=== PATIENT | male | born 1955 ===

== ENCOUNTER 2024-09-14 14:18 | Outpatient (REF) | payer OTHER, MEDICARE, SELFPAY ==
[2024-09-14 15:29] LABS: HBc Num1 0.09 S/CO (0.00-0.79); HBsAGNum1 0.32 S/CO (0.00-0.99); HIV AB/AG Nonreactive (Nonreactive); HIV Num 1 0.05 S/CO (0.00-0.99); Hepatitis B Core Antibody Nonreactive (Nonreactive); Hepatitis B Surface Antigen Negative (Negative); ~Hepatitis B Surface Antibody REACTIVE (Nonreactive)
[2024-09-14 15:52] LABS: Hepatitis C Ab Exposure Source NonReactive (Nonreactive)
--- OUTSIDE RECORDS SUMMARY | 2024-09-14 16:21 | XMS_ITS | Clinical Summary ---
Author Organization [place] [address] [address] [facility] Building Address [address] [place], [place] [address] Phone Care Team Providers Care Commercial Maintenance Technician Name Role Phone Inez Durbin NP Primary Care Provider [phone] Allergies No known active allergies Medications tadalafiL (CIALIS) 20 mg tablet Take 1 Tablet by mouth daily as needed for Erectile Dysfunction 3 Active valsartan-hydro CHLOROthiazide (DIOVAN-HCT) 160-12.5 mg per tablet Take 1 tablet by mouth 1 (one) time each day. 4 Active amLODIPine (NORVASC) 2.5 mg tablet TAKE ONE TABLET BY MOUTH EVERY DAY 90 tablet 3 4 Active atorvastatin (LIPITOR) 40 mg tablet TAKE ONE TABLET BY MOUTH EVERY DAY 90 tablet 3 4 Active atenoloL (TENORMIN) 50 mg tablet TAKE ONE TABLET BY MOUTH EVERY DAY 90 tablet 3 5 Active Active Problems Problem Noted Date Diagnosed Date Essential hypertension 03/20/2024 Overview (03/20/2024): Last Assessment & Plan: The patient has a history of hypertension. Blood pressure today in our office was noted to be 138/82 mmHg. However, patient states that his blood pressure at home is very well-controlled. Specifically, he states that his systolic blood pressure at home is usually in the 110s/120s. Therefore, at this time, I recommended for the patient to continue his current medication regimen. However, I instructed the patient to create a blood pressure log at home for 1 week and to contact our office in 1 week to let us know about his blood pressure values at home. That way, we determine if the need to make any adjustments in his antihypertensive medication regimen. Hypercholesterolemia 03/20/2024 Overview (03/20/2024): Last Assessment & Plan: The patient has a history of hyperlipidemia. He is currently on atorvastatin 40 mg orally daily. Last lipid panel showed an adequate cholesterol control. Will continue his current medication regimen. Aneurysm of ascending aorta 08/15/2021 Overview (03/20/2024): Last Assessment & Plan: The patient has a history of a mild ascending aorta dilation. Ascending aorta measured 4.1 cm on his echocardiogram done in August 2021. Will order a new echocardiogram to reevaluate his ascending aorta dilation. SOB (shortness of breath) 07/28/2020 Overview (03/20/2024): Last Assessment & Plan: The patient has been experiencing shortness of breath with exertion. He does have multiple risk factors for CAD, including: Hyperlipidemia and hypertension. His shortness of breath may be his anginal equivalent. As such, will order a stress test to evaluate for any underlying exercise-induced cardiac ischemia as a cause of his symptoms. We will also order an echocardiogram to evaluate for any underlying structural heart disease. Right inguinal hernia 02/23/2020 Encounters Date Type Department Care Team Description 08/31/2024 9:30 AM EDT Consult [facility] - [facility] [address] [place] [address] Inez Durbin NP Preoperative cardiovascular examination (Primary Dx); Essential hypertension; Hypercholesterolemia; Age-related cataract of both eyes, unspecified age-related cataract type 06/29/2024 9:00 AM EST Ancillary Procedure [facility] [address] [place] [address] Aneurysm of ascending aorta without rupture (CMS/HCC) from Last 3 Months Immunizations Name Administration Dates Next Due Influenza, Unspecified 03/19/2023,03/17/2022 Pfizer SARS-CoV-2 COVID-19, mRNA, LNP-S, preservative free 03/19/2023,03/14/2022,06/03/2021 Pneumococcal conjugate 20 va lent (Prevnar 20, PCV 20) 2mo and older 03/19/2023 Pneumococcal polysaccharide 23 valent (Pneumovax 23) 2yo and older 03/19/2023 RSV, bivalent, protein subun it RSVpreF, 0.5mL, Preservative Free (Arexvy) 60yo and older 04/23/2023 Tdap Tetanus diptheria acell ular pertussis (Boostrix; Adacel) 7yo and older 07/27/2022 Zoster recombinant (Shingrix ) 19yo and older 11/15/2021,09/15/2021 Surgical History Surgery Date Site/Laterality Comments ANKLE FRACTURE SURGERY Right PROCEDURE: TN OPEN TREATMENT MEDIAL MALLEOLUS FRACTURE OTHER SURGICAL HISTORY Left PROCEDURE: TN RPR 1ST INGUN HRNA AGE 5 YRS/> REDUCIBLE HERNIA REPAIR 02/25/2018 Right PROCEDURE: LAPAROSCOPY, INGUINAL HERNIA REPAIR; COMMENT: Dr. Vail LIPOMA RESECTION 03/17/2014 PROCEDURE: SKIN TISSUE EXCISION(LIPOMA) Medical History Medical History Date Comments Unspecified essential hypertension DX:Unspecified essential hypertension Hyperlipidemia DX:Hyperlipidemi a Right inguinal hernia DX:Right i nguinal hernia; COMMENT: 11/16/2017 Anxiety disorder DX:Anxiety diso rder Cervicalgia DX:Cervicalgia SOB (shortness of breath) DX:SOB (shortness of breath) Erectile dysfunction DX:Erectile dysfunction Aortic ectasia DX:Aortic ectasi a (HCC) Family History Medical History Relation Name Comments Hypertension Brother Lung cancer Father Other: Other Mother Hypertension Sister Blindness Neg Hx Cataracts Neg Hx Glaucoma Neg Hx Macular degeneration Neg Hx Strabismus Neg Hx Relation Name Status Comments Brother Father Mother Alive Sister Social History Tobacco Use Types Packs/Day Years Used Date Smoking Tobacco: Never Smokeless Tobacco: Never Alcohol Use Standard Drinks/Week Comments Yes 2 (1 standard drink = 0.6 oz pur e alcohol) Sex and Gender Information Value Date Recorded Sex Assigned at Not on file Legal Sex Male 12:43 PM EST Gender Identity Not on file Sexual Orientation Not on file Obstetrics History Last Filed Vital Signs Vital Sign Reading Time Taken Comments Blood Pressure 134/82 08/31/2024 9:28 AM EDT A Pulse 63 08/31/2024 9:28 AM EDT Temperature - - Respiratory Rate - - Oxygen Saturation - - Inhaled Oxygen Concentration - - Weight 99.3 kg (219 lb) 08/31/2024 9:28 AM EDT Height 180.3 cm (5' 11 ) 08/31/2024 9:28 AM EDT Body Mass Index 30.54 08/31/2024 9:28 AM EDT Plan of Treatment Upcoming Encounters Date Type Department Care Team (Late st Contact Info) Description 10/28/2024 3:00 PM EDT [facility] [address] [place] [address] Ienz Durbin NP [address] [place] [address] Health Maintenance Due Date Last Done Comments Social Influencers of Health Screening 05/15/2022 Colorectal Cancer Screening: Colonoscopy 12/31/2023 12/30/2018 Depression Screening 10/27/2024 10/28/2023 Falls Risk Assessment 10/27/2024 10/28/2023 Hypertension/CHF/CAD Annual BMP Blood Test 04/29/2025 04/29/2024, 10/28/2023, 10/28/2023 Cholesterol Screening (Lipid Panel) 04/29/2029 04/29/2024, 10/28/2023, 10/28/2023 DTaP,Tdap,and Td Vaccines (2 - Td or Tdap) 07/27/2032 07/27/2022 Zoster Vaccines Completed 11/15/2021, 09/16, 09/15/2021, Additional history exists Hepatitis C Screening Completed 10/24/2022 Pneumococcal Vaccine: 50+ Years Completed 03/19/2023, 03/19/2023 RSV Immunization Patients 60+ Years Old Completed 04/23/2023 COVID-19 Vaccine Completed 03/18/2024, 08/2022, 03/14/2022, Additional history exists Influenza Vaccine Completed 03/18/2024, , 03/17/2022 HIB Vaccines Aged Out No longer eligi ble based on patient's age to complete this topic HPV Vaccines Aged Out No longer eligi ble based on patient's age to complete this topic Hepatitis A Vaccines Aged Out No long er eligible based on patient's age to complete this topic Hepatitis B Vaccines Aged Out No long er eligible based on patient's age to complete this topic IPV Vaccines Aged Out No longer eligi ble based on patient's age to complete this topic MMR Vaccines Aged Out No longer eligi ble based on patient's age to complete this topic Meningococcal ACWY Vaccine Aged Out N o longer eligible based on patient's age to complete this topic Meningococcal B Vacine Aged Out No lo nger eligible based on patient's age to complete this topic RSV Immunization Patients Under 20 months Aged Out No longer eligible based on patient's age to complete this topic Varicella Vaccines Aged Out No longer eligible based on patient's age to complete this topic Procedures Procedure Name Priority Date/Time Associated Diagnosis Comments TRANSTHORACIC ECHOCARDIOGRAM (TTE) COMPLETE Routine 06/29/2024 9:22 AM EST Aneurysm of ascending aorta without rupture (CMS/HCC) BASIC METABOLIC PANEL Routine 04/29/2024 9:22 AM EST Essential hypertension LIPID PANEL WITH REFLEX TO DIRECT LDL Routine 04/29/2024 9:22 AM EST Mixed hyperlipidemia DEPRESSION SCREENING Routine 10/28/2023 FALLS RISK ASSESSMENT Routine 10/28/2023 HEPATITIS C SCREENING Routine 10/24/2022 COLONOSCOPY Routine 12/30/2018 from Last 3 Months or Most Recently Relevant to Health Maintenance Results * TRANSTHORACIC ECHOCARDIOGRAM (TTE) COMPLETE (06/29/2024 9:22 AM EST) Left Atrium Minor Westhoff 5.7 cm CV PACS Left Atrium Major Westhoff 6.1 cm CV PACS LA Area Sys (A2C) 24 cm2 CV PACS LA Area Sys (A4C) 20 cm2 CV PACS LA Volume (BP) 67 mL CV PACS RA Area 15.1 cm2 CV PACS RA 2D Volume 36 mL CV PACS AV Mean Gradient 2 mmHg CV PACS Ao VTI 27.4 cm CV PACS AV Peak Rob 1.1 m/s CV PACS AV Peak Gradient 4 mmHg CV PACS AV Area Continuity Equation 2.9 cm2 CV PACS AV Area Peak Velocity 2.8 cm2 CV PACS Aortic Sinus Valsalva 3.7 cm CV PACS Ascending Aorta 4.1 cm CV PACS IVC Proximal 1.4 cm CV PACS IVSD 1.0 0.6 - 1.0 cm CV PACS LVIDD 4.9 4.2 - 5.8 cm CV PACS LVIDS 3.5 2.5 - 4.0 cm CV PACS LVOT Diameter 2.0 cm CV PACS LVOT Mean Rob 0.7 m/s CV PACS LVOT Mean Grad 2 mmHg CV PACS LVOT Peak VTI 25.5 cm CV PACS LVOT Peak Rob 1.0 m/s CV PACS LVOT Peak Gradient 4 mmHg CV PACS LVPWD 1.0 0.6 - 1.0 cm CV PACS MV E' Tissue Velocity Lateral 11 cm/s CV PACS MV E' Tissue Velocity Septal 7 cm/s CV PACS LVOT Area 3.1 cm2 CV PACS LVOT Stroke Volume 80 mL CV PACS MV Deceleration Page 3.1 m/s2 CV PACS E Wave Deceleration Time 207 119 - 242 ms CV PACS MV PHT 61 ms CV PACS MV Peak A Rob 0.56 m/s CV PACS MV Peak E Rob 0.65 m/s CV PACS MV Area PHT 3.6 cm2 CV PACS TN End Max Velocity 0.9 m/s CV PACS PA End Diastolic Pressure 3 mmHg CV PACS PV Acceleration Time 85 ms CV PACS PV Peak Velocity 0.9 m/s CV PACS PV Peak Gradient 3 mmHg CV PACS RV Diastolic Basal Dimension 3.3 2.5 - 4.1 cm CV PACS TAPSE 25 mm CV PACS TR Peak Velocity 2.16 m/s CV PACS TR Peak Gradient 19 mmHg CV PACS E/E' Ratio Septal 9 CV PACS E/E' Ratio Averaged 8 CV PACS LVOT Stroke Index 37 mL/m2 CV PACS Relative Wall Thickness ratio 0.41 CV PACS LVOT:AV VTI Index 0.93 CV PACS FS 29 % CV PACS LV Mass 2D 176 g CV PACS Ascending Aorta Index 1.87 cm/m2 CV PACS LVOT flow 220 mL/s CV PACS RA 2D Volume Index 16 mL/m2 CV PACS REJI Index (VTI) 1.33 cm2/m2 CV PACS REJI Index (Pk Rob) 1.28 cm2/m2 CV PACS LVIDD Index 2.24 cm/m2 CV PACS LVIDS Index 1.60 cm/m2 CV PACS AV Velocity Ratio 0.91 CV PACS E/A Ratio 1.2 CV PACS E/E' Ratio Lateral 6 CV PACS LA Volume Index (BP) 31 mL/m2 CV PACS LV Mass Index 2D 80 g/m2 CV PACS BSA 2.23 m2 CV PACS Right Ventricular Peak Systolic Pressure 22 mmHg CV PACS Est. RA Pressure 3 mmHg CV PACS Anatomical Region Laterality Modality Ultrasound Narrative 07/29/2024 8:22 AM EST ?Left ventricle cavity size is normal. Left ventricular systolic function is in the normal range with an ejection fraction of 55-60%. ?No regional LV wall motion abnormalities noted. ?Right??Ventricle: Systolic function is normal. ?Mitral??Valve: There is mild regurgitation. ?Aorta: The ascending aorta is dilated (4.1 cm). Left Ventricle Left ventricle cavity size is normal. Wall thickness is normal. Systolic function is normal with an ejection fraction of 55-60%. There are no regional LV wall motion abnormalities. There is no diastolic dysfunction. Right Ventricle Right ventricle cavity appears normal. Systolic function is normal. Left Atrium Left atrium cavity size is normal. Right Atrium Right atrium cavity is normal. Mitral Valve The leaflets are mildly thickened. There is annular calcification. There is mild regurgitation. There is no evidence of mitral valve stenosis. Tricuspid Valve Tricuspid valve structure is normal. There is trace regurgitation. There is no evidence of tricuspid valve stenosis. Aortic Valve The aortic valve is trileaflet. The leaflets are mildly thickened. There is no regurgitation or stenosis. Pulmonic Valve Visualized portions of the pulmonic valve appear normal. There is trace pulmonic valve regurgitation. There is no evidence of pulmonic valve stenosis. Ascending Aorta The ascending aorta is dilated (4.1 cm). Pericardium Pericardium appears normal. There is no pericardial effusion. Study Details Overall the study quality was adequate. us Jaylyn Rutledge PERSONAL SECURITY SPECIALIST CV ECHO PROCEDURES Final Re sult * (ABNORMAL) Lipid panel with reflex to direct LDL (04/29/2024 9:22 AM EST) Cholesterol 146 0 - 200 mg/dL LAB CHEMISTRY METHOD 04/29/2024 12:58 PM EST [facility] Triglycerides 170(H) 0 - 150 mg/dL LAB CHEMISTRY METHOD 04/29/2024 12:58 PM EST [facility] HDL 46 >=40 mg/dL LAB CHEMISTRY METHOD 04/29/2024 12:58 PM [facility] LDL Calculated 66 0 - 100 mg/dL LAB CHEMISTRY METHOD 04/29/2024 12:58 PM [facility] VLDL Cholesterol Gutierrez 34 mg/dL LAB CHEMISTRY METHOD 04/29/2024 12:58 PM EST [facility] Non HDL Chol. (LDL+VLDL) 100 <145 mg/dL LAB CHEMISTRY METHOD 04/29/2024 12:58 PM EST [facility] Chol/HDL Ratio 3.2 0.0 - 4.4 LAB CHEMISTRY METHOD 04/29/2024 12:58 PM [facility] Blood Venous blood specimen / Unknown Venipuncture / Unknown 04/29/2024 9:22 AM EST 04/29/2024 9:22 AM EST Inez Durbin PERSONAL SECURITY SPECIALIST LAB BLOOD ORDERABLES Final Resu lt [facility] [address] [place] [address], * (ABNORMAL) Basic metabolic panel (04/29/2024 9:22 AM EST) Sodium 138 133 - 145 mmol/L LAB CHEMISTRY METHOD 04/29/2024 12:56 PM [facility] Potassium 4.1 3.5 - 5.5 mmol/L LAB CHEMISTRY METHOD 04/29/2024 12:56 PM [facility] Chloride 101 96 - 110 mmol/L LAB CHEMISTRY METHOD 04/29/2024 12:56 PM [facility] CO2 30 21 - 32 mmol/L LAB CHEMISTRY METHOD 04/29/2024 12:56 PM [facility] Anion Gap 7 3 - 11 LAB CHEMISTRY METHOD 04/29/2024 12:56 PM [facility] Glucose 98 70 - 100 mg/dL LAB CHEMISTRY METHOD 04/29/2024 12:56 PM [facility] BUN 20 5 - 25 mg/dL LAB CHEMISTRY METHOD 04/29/2024 12:56 PM [facility] Creatinine 1.37(H) 0.70 - 1.30 mg/dL LAB CHEMISTRY METHOD 04/29/2024 12:56 PM [facility] eGFR 57(L) >=60 mL/min/1. 73m2 LAB CHEMISTRY METHOD 04/29/2024 12:56 PM [facility] Comment:Calculation based on the??Chronic Kidney Disease Epidemiology Collaboration (CKD-EPI) equation refit??without adjustment for race. BUN/Creatinine Ratio 14.6 LAB CHEMISTRY METHOD 04/29/2024 12:56 PM [facility] Calcium 9.8 8.5 - 10.5 mg/dL LAB CHEMISTRY METHOD 04/29/2024 12:56 PM [facility] Blood Venous blood specimen / Unknown Venipuncture / Unknown 04/29/2024 9:22 AM EST 04/29/2024 9:22 AM EST us Inez Durbin NP LAB BLOOD ORDERABLES Final Resu lt [facility] [address] [place], [place] [address] [phone] * Falls Risk Assessment (10/28/2023) Pathologist [facility] Falls Risk Assessment Abstracted Historical Provider HEALTH MAINTENANCE Final Result * Depression Screening (10/28/2023) Depression Screening Abstracted [facility] Provider HEALTH MAINTENANCE Final Result * Hepatitis C Screening (10/24/2022) Pathologist [facility] Hepatitis C Screening Abstracted [facility] Provider HEALTH MAINTENANCE Final Result * Colonoscopy (12/30/2018) Pathologist [facility] Colonoscopy No Interpretation , Abstracted Anatomical Region Laterality Modality Other [facility] Provider HEALTH MAINTENANCE Final Result from Last 3 Months or Most Recently Relevant to Health Maintenance Insurance MEDICARE [employer] Care Teams Commercial Maintenance Technician Relationship Specialty Start Date End Date Inez Durbin NP [address] [place] [address] PCP - General 07/27/22
== END 2024-09-14 14:19 | disposition home or self-care (01) ==
LOC: HO.LNP 14:18
PROVIDERS: Visit Provider Ophthalmology
DX: Z20.5 Contact with and (suspected) exposure to viral hepatitis (principal)
CPT/HCPCS: 86803